=== PATIENT | female | born 1950 | race Caucasian/White ===

== ENCOUNTER 2021-11-11 05:59 | Inpatient (IN) | payer OTHER ==
[2021-11-11] MEDS ORDERED: SODIUM CHLORIDE IV ONE (06:22)
[2021-11-11] MEDS ORDERED: ACETAMINOPHEN 1000 MG/100 ML BAG IVPB ONE ×2 (06:32→16:01)
[2021-11-11] MEDS ORDERED: ACETAMINOPHEN INJECTION 100 ML IVPB ONE ×2 (06:48→16:37)
[2021-11-11] MEDS ORDERED: VANCOMYCIN 1 GM in D5W (PRE-DOCKED) 1,000 MG/250 ML IVPB ONE (07:07)
[2021-11-11] MEDS ORDERED: PIPERACILLIN/TAZOB 4.5 GM 4.5 GM in DEXTROSE 5%-WATER 100 ML IVPB ONE (07:07)
[2021-11-11 07:16] LABS: VENOUS BASE EXCESS 5.5 mmol/L (-2-2); VENOUS PCO2 45.7 mmHg (38-52); VENOUS PH 7.444 (7.310-7.410)
[2021-11-11 07:27] LABS: BASO % 0.7 % (0-2.0); HEMATOCRIT 49.6 % (32.4-45.2); HEMOGLOBIN 16.3 GM/dL (10.7-15.3); LYMPH % 16.6 % (8-40); MCH 29.3 pg (25.7-33.7); MCHC 32.8 g/dl (32.0-36.0); MEAN CELL VOLUME 89.2 fl (80-96); MEAN PLT VOLUME 11.4 fl (7.5-11.1); MONO % 7.7 % (3.8-10.2); PLATELET COUNT 249 10^3/uL (134-434); RBC 5.57 M/mm3 (3.60-5.2); RDW 13.6 % (11.6-15.6); WHITE BLOOD COUNT 12.3 K/mm3 (4.0-10.0)
[2021-11-11] MEDS ORDERED: PIPERACILLIN/TAZOB 4.5 GM 4.5 GM/100 ML BAG IVPB ONE (07:30)
[2021-11-11] MEDS ORDERED: VANCOMYCIN/WATER FOR INJ (PEG) 1,000 MG/200 ML BAG IVPB ONE (07:31)
[2021-11-11 07:36] LABS: INR 1.21 (0.83-1.09)
[2021-11-11 07:39] LABS: ACTIVATED PTT 26.1 SECONDS (25.2-36.5)
[2021-11-11 08:05] LABS: CHLORIDE 114 mmol/L (98-107); SODIUM 153 mmol/L (136-145)
[2021-11-11 08:07] LABS: CALCIUM 9.8 mg/dL (8.5-10.1)
[2021-11-11 08:08] LABS: ALBUMIN 3.7 g/dl (3.4-5.0); ANION GAP 9 MMOL/L (8-16); BLOOD UREA NITROGEN 47.9 mg/dL (7-18); CO2 29 mmol/L (21-32); GLUCOSE,RANDOM 282 mg/dL (74-106)
[2021-11-11] MEDS: ALBUTEROL SO4 2.5/IPRATROPIUM 0.5 INH SOL 3 ML VIAL.NEB. NEB SCH ×2 (08:10→08:34)
[2021-11-11] MEDS ORDERED: ALBUTEROL SO4 2.5/IPRATROPIUM 0.5 INH SOL 3 ML VIAL.NEB. NEB ONE (08:10)
[2021-11-11 08:11] LABS: CREATININE 0.9 mg/dL (0.55-1.3); SGOT/AST 20 U/L (15-37); SGPT/ALT 17 U/L (13-61)
[2021-11-11 08:12] LABS: BILIRUBIN,TOTAL 0.4 mg/dL (0.2-1)
[2021-11-11 08:13] LABS: TOT PROT 7.9 g/dl (6.4-8.2)
[2021-11-11 08:14] LABS: ALK PHOS 66 U/L (45-117)
[2021-11-11 09:09] LABS: EPI CELLS 20 /uL (0-25.1); HYALINE CASTS 16 /uL (0-3.1); PH,URINE >= 9.0 (5.0-8.0); URINE APPEARANCE TURBID; URINE BACTERIA >9,000 /uL (0-1359); URINE BILIRUBIN NEGATIVE (NEGATIVE); URINE COLOR YELLOW; URINE GLUCOSE (UA) NEGATIVE (NEGATIVE); URINE KETONE NEGATIVE (NEGATIVE); URINE LEUK ESTERASE 3+ (NEGATIVE); URINE NITRITE NEGATIVE (NEGATIVE); URINE PROTEIN 3+ (NEGATIVE); URINE RBC 7 /uL (0-23.9); URINE WBC 561 /uL (0-25.8)
[2021-11-11 09:11] LABS: MAGNESIUM 2.3 mg/dL (1.8-2.4)
[2021-11-11 09:14] LABS: PHOSPHOROUS 4.7 mg/dL (2.5-4.9)
[2021-11-11 11:00] LABS: URINE CRYSTALS MANY /hpf
[2021-11-11] MEDS ORDERED: ALBUTEROL SO4 2.5/IPRATROPIUM 0.5 INH SOL 3 ML VIAL.NEB. NEB PRN (12:00)
[2021-11-11] MEDS ORDERED: MUPIROCIN CA 2% TOPICAL CREAM 15 GM TUBE TP SCH (12:00)
[2021-11-11] MEDS ORDERED: SODIUM CHLORIDE 0.9% 1000 ML INFUS.BAG IV ONE (16:01)
[2021-11-11] MEDS: metFORMIN HCL 500 MG TABLET (FP) PO SCH (17:00)
[2021-11-11] MEDS: INSULIN SLIDING SCALE (NOVOLOG) 1 VIAL SQ SCH (17:01)
[2021-11-11] MEDS ORDERED: PIPERACILLIN/TAZOB 3.375 GM 3.375 GM/50 ML BAG IVPB ONE (18:37)
[2021-11-11] MEDS: PIPERACILLIN/TAZOB 3.375 GM 3.375 GM in DEXTROSE 5%-WATER - 50 ML IVPB SCH (19:08)
[2021-11-11] MEDS: SENNOSIDES 8.6MG TABLET (FP) PO SCH (21:58)
[2021-11-11] MEDS: MELATONIN 1 MG TABLET PO SCH (21:58)
[2021-11-11] MEDS: CALCIUM 500MG/VIT-D 200 UNITS COMBO TABLET (FP) PO SCH (21:58)
[2021-11-11] MEDS ORDERED: PATIENT'S OWN MEDICATION (NON-FORMULARY) (Calcium Carb, Citrate/Vit D3 [Calcium + D3 Er Ta PO SCH (22:00)
[2021-11-11] MEDS: LACTULOSE 20 GM/30 ML UDC (FOR ORAL USE ONLY) PO SCH (22:00)
[2021-11-11] MEDS: ATORVASTATIN CA 20 MG TABLET (FP) PO SCH (22:02)
[2021-11-11] MEDS: HEPARIN NA (PORCINE) 5,000 UNITS/ML 1ML VIAL SQ SCH (22:02)
[2021-11-12] MEDS: PIPERACILLIN/TAZOB 3.375 GM 3.375 GM in DEXTROSE 5%-WATER - 50 ML IVPB SCH ×3 (02:00→17:32)
[2021-11-12] MEDS: metFORMIN HCL 500 MG TABLET (FP) PO SCH ×2 (06:13→17:32)
[2021-11-12] MEDS: INSULIN SLIDING SCALE (NOVOLOG) 1 VIAL SQ SCH ×2 (06:13→17:29)
[2021-11-12 07:29] LABS: BASO % 0.6 % (0-2.0); EOS % 0.7 % (0-4.5); HEMATOCRIT 42.5 % (32.4-45.2); HEMOGLOBIN 13.8 GM/dL (10.7-15.3); LYMPH % 19.4 % (8-40); MCH 28.8 pg (25.7-33.7); MCHC 32.4 g/dl (32.0-36.0); MEAN CELL VOLUME 88.8 fl (80-96); MEAN PLT VOLUME 11.7 fl (7.5-11.1); MONO % 6.6 % (3.8-10.2); NEUT % 72.7 % (42.8-82.8); PLATELET COUNT 178 10^3/uL (134-434); RBC 4.78 M/mm3 (3.60-5.2); RDW 13.7 % (11.6-15.6); WHITE BLOOD COUNT 11.3 K/mm3 (4.0-10.0)
[2021-11-12 07:50] LABS: ALBUMIN 3.1 g/dl (3.4-5.0); BLOOD UREA NITROGEN 36.2 mg/dL (7-18); CALCIUM 9.1 mg/dL (8.5-10.1)
[2021-11-12 07:54] LABS: CREATININE 0.6 mg/dL (0.55-1.3)
[2021-11-12 07:55] LABS: BILIRUBIN,TOTAL 0.7 mg/dL (0.2-1); TOT PROT 6.7 g/dl (6.4-8.2)
[2021-11-12] MEDS ORDERED: CRANBERRY FRUIT 450 MG PO SCH (10:00)
[2021-11-12] MEDS ORDERED: PATIENT'S OWN MEDICATION (NON-FORMULARY) (Vit A/Vit C/Vit E/Zinc/Copper [Preservision Ared PO SCH (10:00)
[2021-11-12] MEDS ORDERED: VANCOMYCIN 1 GM in D5W (PRE-DOCKED) 1,000 MG/250 ML IVPB ONE (10:33)
[2021-11-12] MEDS: CHOLECALCIFEROL (VIT D3) 1,000 UNIT (25 MCG) TABLET PO SCH (10:34)
[2021-11-12] MEDS: CALCIUM 500MG/VIT-D 200 UNITS COMBO TABLET (FP) PO SCH ×2 (10:34→21:25)
[2021-11-12] MEDS: SERTRALINE HCL 50 MG TABLET (FP) PO SCH (10:34)
[2021-11-12] MEDS: ASPIRIN 81 MG CHEWABLE TABLETS PO SCH (10:34)
[2021-11-12] MEDS: NIFEdipine E.R. 30 MG TABLET PO SCH (10:34)
[2021-11-12] MEDS: POLYETHYLENE GLYCOL (HEALTHYLAX) 3350 17 GM PACKET PO SCH (10:35)
[2021-11-12] MEDS: HEPARIN NA (PORCINE) 5,000 UNITS/ML 1ML VIAL SQ SCH ×2 (10:35→21:24)
[2021-11-12] MEDS: LACTULOSE 20 GM/30 ML UDC (FOR ORAL USE ONLY) PO SCH ×2 (10:37→21:39)
[2021-11-12] MEDS ORDERED: VANCOMYCIN/WATER FOR INJ (PEG) 1,000 MG/200 ML BAG IVPB ONE (11:00)
[2021-11-12] MEDS ORDERED: LORazepam 2 MG/ML SDV VIAL IVPUSH PRN (14:34)
[2021-11-12] MEDS: DEXTROSE 5%-0.45% SALINE 1,000 ML IV SCH (17:32)
[2021-11-12] MEDS: MELATONIN 1 MG TABLET PO SCH (21:24)
[2021-11-12] MEDS: ATORVASTATIN CA 20 MG TABLET (FP) PO SCH (21:24)
[2021-11-12] MEDS: SENNOSIDES 8.6MG TABLET (FP) PO SCH (21:25)
[2021-11-12] MEDS ORDERED: VANCOMYCIN 750 MG in DEXTROSE 5%-WATER - 150 ML IVPB SCH (22:00)
[2021-11-13] MEDS: PIPERACILLIN/TAZOB 3.375 GM 3.375 GM in DEXTROSE 5%-WATER - 50 ML IVPB SCH ×3 (01:02→17:20)
[2021-11-13] MEDS: INSULIN SLIDING SCALE (NOVOLOG) 1 VIAL SQ SCH ×2 (06:26→17:21)
[2021-11-13] MEDS: metFORMIN HCL 500 MG TABLET (FP) PO SCH ×2 (06:26→17:20)
[2021-11-13 07:22] LABS: CALCIUM 8.4 mg/dL (8.5-10.1)
[2021-11-13 07:23] LABS: ALBUMIN 2.9 g/dl (3.4-5.0); BLOOD UREA NITROGEN 26.5 mg/dL (7-18)
[2021-11-13 07:26] LABS: CREATININE 0.6 mg/dL (0.55-1.3)
[2021-11-13 07:28] LABS: BILIRUBIN,TOTAL 0.9 mg/dL (0.2-1)
[2021-11-13] MEDS: HEPARIN NA (PORCINE) 5,000 UNITS/ML 1ML VIAL SQ SCH ×2 (09:26→21:29)
[2021-11-13] MEDS: ASPIRIN 81 MG CHEWABLE TABLETS PO SCH (09:26)
[2021-11-13] MEDS: NIFEdipine E.R. 30 MG TABLET PO SCH (09:26)
[2021-11-13] MEDS: CHOLECALCIFEROL (VIT D3) 1,000 UNIT (25 MCG) TABLET PO SCH (09:26)
[2021-11-13] MEDS: SERTRALINE HCL 50 MG TABLET (FP) PO SCH (09:26)
[2021-11-13] MEDS: CALCIUM 500MG/VIT-D 200 UNITS COMBO TABLET (FP) PO SCH ×2 (09:26→21:29)
[2021-11-13] MEDS: POLYETHYLENE GLYCOL (HEALTHYLAX) 3350 17 GM PACKET PO SCH (09:27)
[2021-11-13] MEDS: LACTULOSE 20 GM/30 ML UDC (FOR ORAL USE ONLY) PO SCH ×2 (09:27→21:29)
[2021-11-13] MEDS: DEXTROSE 5%-0.45% SALINE 1,000 ML IV SCH (14:00)
[2021-11-13 14:46] VITALS: BMI 19.0
[2021-11-13] MEDS ORDERED: PIPERACILLIN/TAZOBACTAM 3.375 GM VIAL IVPB ONE (16:48)
[2021-11-13] MEDS: SENNOSIDES 8.6MG TABLET (FP) PO SCH (21:29)
[2021-11-13] MEDS: ATORVASTATIN CA 20 MG TABLET (FP) PO SCH (21:29)
[2021-11-13] MEDS: MELATONIN 1 MG TABLET PO SCH (21:29)
[2021-11-14] MEDS: PIPERACILLIN/TAZOB 3.375 GM 3.375 GM in DEXTROSE 5%-WATER - 50 ML IVPB SCH ×3 (02:54→17:24)
[2021-11-14] MEDS: metFORMIN HCL 500 MG TABLET (FP) PO SCH ×2 (06:43→17:24)
[2021-11-14] MEDS: INSULIN SLIDING SCALE (NOVOLOG) 1 VIAL SQ SCH ×2 (06:43→17:54)
[2021-11-14] MEDS: ASPIRIN 81 MG CHEWABLE TABLETS PO SCH (11:04)
[2021-11-14] MEDS: SERTRALINE HCL 50 MG TABLET (FP) PO SCH (11:04)
[2021-11-14] MEDS: POLYETHYLENE GLYCOL (HEALTHYLAX) 3350 17 GM PACKET PO SCH (11:04)
[2021-11-14] MEDS: CALCIUM 500MG/VIT-D 200 UNITS COMBO TABLET (FP) PO SCH ×2 (11:05→22:10)
[2021-11-14] MEDS: LACTULOSE 20 GM/30 ML UDC (FOR ORAL USE ONLY) PO SCH ×2 (11:05→22:02)
[2021-11-14] MEDS: HEPARIN NA (PORCINE) 5,000 UNITS/ML 1ML VIAL SQ SCH ×2 (11:05→22:03)
[2021-11-14] MEDS: CHOLECALCIFEROL (VIT D3) 1,000 UNIT (25 MCG) TABLET PO SCH (11:05)
[2021-11-14] MEDS: NIFEdipine E.R. 30 MG TABLET PO SCH (11:05)
[2021-11-14] MEDS: DEXTROSE 5%-0.45% SALINE 1,000 ML IV SCH (11:07)
[2021-11-14] MEDS: LACTOBACILLUS ACIDOPHILUS 1 TABLET PO SCH (17:24)
[2021-11-14] MEDS: ATORVASTATIN CA 20 MG TABLET (FP) PO SCH (22:04)
[2021-11-14] MEDS: MELATONIN 1 MG TABLET PO SCH (22:10)
[2021-11-14] MEDS: SENNOSIDES 8.6MG TABLET (FP) PO SCH (22:16)
[2021-11-15] MEDS: CEFTRIAXONE 1 GM in DEXTROSE 5%-WATER - 50 ML IVPB SCH ×2 (01:46→11:11)
[2021-11-15] MEDS: metFORMIN HCL 500 MG TABLET (FP) PO SCH ×3 (06:24→17:40)
[2021-11-15] MEDS: INSULIN SLIDING SCALE (NOVOLOG) 1 VIAL SQ SCH ×2 (06:24→17:38)
[2021-11-15 08:13] LABS: BASO % 0.6 % (0-2.0); EOS % 3.9 % (0-4.5); HEMATOCRIT 36.1 % (32.4-45.2); HEMOGLOBIN 12.1 GM/dL (10.7-15.3); LYMPH % 30.4 % (8-40); MCH 29.3 pg (25.7-33.7); MCHC 33.4 g/dl (32.0-36.0); MEAN CELL VOLUME 87.6 fl (80-96); MEAN PLT VOLUME 12.5 fl (7.5-11.1); MONO % 5.6 % (3.8-10.2); NEUT % 59.5 % (42.8-82.8); PLATELET COUNT 136 10^3/uL (134-434); RBC 4.12 M/mm3 (3.60-5.2); RDW 12.9 % (11.6-15.6); WHITE BLOOD COUNT 8.3 K/mm3 (4.0-10.0)
[2021-11-15 08:31] LABS: ALBUMIN 2.7 g/dl (3.4-5.0); CREATININE 0.4 mg/dL (0.55-1.3)
[2021-11-15 08:32] LABS: TOT PROT 5.5 g/dl (6.4-8.2)
[2021-11-15 08:33] LABS: BILIRUBIN,TOTAL 0.4 mg/dL (0.2-1); CALCIUM 8.5 mg/dL (8.5-10.1)
[2021-11-15] MEDS: HEPARIN NA (PORCINE) 5,000 UNITS/ML 1ML VIAL SQ SCH ×2 (11:10→21:39)
[2021-11-15] MEDS: CALCIUM 500MG/VIT-D 200 UNITS COMBO TABLET (FP) PO SCH ×2 (11:10→21:39)
[2021-11-15] MEDS: POLYETHYLENE GLYCOL (HEALTHYLAX) 3350 17 GM PACKET PO SCH (11:10)
[2021-11-15] MEDS: ASPIRIN 81 MG CHEWABLE TABLETS PO SCH (11:11)
[2021-11-15] MEDS: LACTULOSE 20 GM/30 ML UDC (FOR ORAL USE ONLY) PO SCH ×2 (11:11→21:39)
[2021-11-15] MEDS: CHOLECALCIFEROL (VIT D3) 1,000 UNIT (25 MCG) TABLET PO SCH (11:11)
[2021-11-15] MEDS: NIFEdipine E.R. 30 MG TABLET PO SCH (11:11)
[2021-11-15] MEDS: SERTRALINE HCL 50 MG TABLET (FP) PO SCH (11:11)
[2021-11-15] MEDS: LACTOBACILLUS ACIDOPHILUS 1 TABLET PO SCH (11:11)
[2021-11-15] MEDS: DEXTROSE 5%-0.45% SALINE 1,000 ML IV SCH (11:12)
[2021-11-15] MEDS: ATORVASTATIN CA 20 MG TABLET (FP) PO SCH (21:39)
[2021-11-15] MEDS: MELATONIN 1 MG TABLET PO SCH (21:39)
[2021-11-15] MEDS: SENNOSIDES 8.6MG TABLET (FP) PO SCH (21:39)
[2021-11-16] MEDS: INSULIN SLIDING SCALE (NOVOLOG) 1 VIAL SQ SCH ×2 (06:54→17:45)
[2021-11-16] MEDS: metFORMIN HCL 500 MG TABLET (FP) PO SCH ×2 (06:54→17:41)
[2021-11-16] MEDS: CEFTRIAXONE 1 GM in DEXTROSE 5%-WATER - 50 ML IVPB SCH (10:48)
[2021-11-16] MEDS: CALCIUM 500MG/VIT-D 200 UNITS COMBO TABLET (FP) PO SCH ×2 (10:49→22:03)
[2021-11-16] MEDS: CHOLECALCIFEROL (VIT D3) 1,000 UNIT (25 MCG) TABLET PO SCH (10:49)
[2021-11-16] MEDS: POLYETHYLENE GLYCOL (HEALTHYLAX) 3350 17 GM PACKET PO SCH (10:49)
[2021-11-16] MEDS: LACTOBACILLUS ACIDOPHILUS 1 TABLET PO SCH (10:49)
[2021-11-16] MEDS: SERTRALINE HCL 50 MG TABLET (FP) PO SCH (10:49)
[2021-11-16] MEDS: HEPARIN NA (PORCINE) 5,000 UNITS/ML 1ML VIAL SQ SCH ×2 (10:50→22:05)
[2021-11-16] MEDS: ASPIRIN 81 MG CHEWABLE TABLETS PO SCH (10:50)
[2021-11-16] MEDS: LACTULOSE 20 GM/30 ML UDC (FOR ORAL USE ONLY) PO SCH ×2 (10:50→22:04)
[2021-11-16] MEDS: NIFEdipine E.R. 30 MG TABLET PO SCH (10:50)
[2021-11-16] MEDS: MELATONIN 1 MG TABLET PO SCH (22:03)
[2021-11-16] MEDS: ATORVASTATIN CA 20 MG TABLET (FP) PO SCH (22:03)
[2021-11-16] MEDS: SENNOSIDES 8.6MG TABLET (FP) PO SCH (22:03)
[2021-11-17] MEDS: INSULIN SLIDING SCALE (NOVOLOG) 1 VIAL SQ SCH ×2 (06:45→17:14)
[2021-11-17] MEDS: metFORMIN HCL 500 MG TABLET (FP) PO SCH ×2 (06:46→17:10)
[2021-11-17] MEDS ORDERED: CEFTRIAXONE 1 GM in DEXTROSE 5%-WATER - 50 ML IVPB SCH (10:00)
[2021-11-17] MEDS: NIFEdipine E.R. 30 MG TABLET PO SCH (10:05)
[2021-11-17] MEDS: ASPIRIN 81 MG CHEWABLE TABLETS PO SCH (10:05)
[2021-11-17] MEDS: CALCIUM 500MG/VIT-D 200 UNITS COMBO TABLET (FP) PO SCH ×2 (10:05→23:42)
[2021-11-17] MEDS: SERTRALINE HCL 50 MG TABLET (FP) PO SCH (10:05)
[2021-11-17] MEDS: POLYETHYLENE GLYCOL (HEALTHYLAX) 3350 17 GM PACKET PO SCH (10:06)
[2021-11-17] MEDS: LACTULOSE 20 GM/30 ML UDC (FOR ORAL USE ONLY) PO SCH ×2 (10:06→23:43)
[2021-11-17] MEDS: LACTOBACILLUS ACIDOPHILUS 1 TABLET PO SCH (10:06)
[2021-11-17] MEDS: HEPARIN NA (PORCINE) 5,000 UNITS/ML 1ML VIAL SQ SCH ×2 (10:06→23:43)
[2021-11-17] MEDS: CHOLECALCIFEROL (VIT D3) 1,000 UNIT (25 MCG) TABLET PO SCH (10:07)
[2021-11-17] MEDS: MELATONIN 1 MG TABLET PO SCH (23:42)
[2021-11-17] MEDS: ATORVASTATIN CA 20 MG TABLET (FP) PO SCH (23:42)
[2021-11-17] MEDS: SENNOSIDES 8.6MG TABLET (FP) PO SCH (23:42)
[2021-11-18] MEDS: metFORMIN HCL 500 MG TABLET (FP) PO SCH ×2 (06:08→16:32)
[2021-11-18] MEDS: INSULIN SLIDING SCALE (NOVOLOG) 1 VIAL SQ SCH ×2 (06:09→16:33)
[2021-11-18 10:04] VITALS: RESP 18
[2021-11-18] MEDS: NIFEdipine E.R. 30 MG TABLET PO SCH (10:04)
[2021-11-18] MEDS: POLYETHYLENE GLYCOL (HEALTHYLAX) 3350 17 GM PACKET PO SCH (10:04)
[2021-11-18] MEDS: CALCIUM 500MG/VIT-D 200 UNITS COMBO TABLET (FP) PO SCH (10:04)
[2021-11-18] MEDS: CHOLECALCIFEROL (VIT D3) 1,000 UNIT (25 MCG) TABLET PO SCH (10:04)
[2021-11-18] MEDS: LACTOBACILLUS ACIDOPHILUS 1 TABLET PO SCH (10:04)
[2021-11-18] MEDS: LACTULOSE 20 GM/30 ML UDC (FOR ORAL USE ONLY) PO SCH (10:04)
[2021-11-18] MEDS: ASPIRIN 81 MG CHEWABLE TABLETS PO SCH (10:05)
[2021-11-18] MEDS: HEPARIN NA (PORCINE) 5,000 UNITS/ML 1ML VIAL SQ SCH (10:05)
[2021-11-18] MEDS: SERTRALINE HCL 50 MG TABLET (FP) PO SCH (10:05)
[2021-11-18] MEDS: CEPHALEXIN MONOHYDRATE 500 MG CAPSULE (UD) PO SCH ×3 (10:05→18:00)
[2021-11-18 13:57] VITALS: BP 125/73; PULSE 97; TEMP 97.5
== END 2021-11-18 18:29 | DRG 871 ==
LOC: JER 05:59 → JERBED 08:09 → J4W 20:46 → J6S 11-16 18:37
PROVIDERS: ADMIT Internal Medicine; ATTEND Internal Medicine
DX: A41.89 Other specified sepsis (principal); E43 Unspecified severe protein-calorie malnutrition; N39.0 Urinary tract infection, site not specified; Z68.1 Body mass index [BMI] 19.9 or less, adult; I10 Essential (primary) hypertension; E78.5 Hyperlipidemia, unspecified; F03.90 Unspecified dementia, unspecified severity, without behavioral disturbance, psychotic disturbance, mood disturbance, and anxiety; G20 Parkinson's disease; K59.00 Constipation, unspecified; B96.4 Proteus (mirabilis) (morganii) as the cause of diseases classified elsewhere; Z74.01 Bed confinement status; Z85.3 Personal history of malignant neoplasm of breast
CPT/HCPCS: 0241U-QW; 36415; 70450-TC; 71045-TC-FY; 80053; 81003; 82550; 82553; 82803; 82962; 83036; 83605; 83735; 84100; 84484; 85025; 85610; 85730; 86850; 86900; 86901; 87040; 87077; 87086; 87186; 93005; 93010; 93306-TC; 94640; 99285-25; C9803-CS; G0480; J1644; U0003; U0005

== ENCOUNTER 2022-04-21 13:11 | Inpatient (IN) | payer OTHER ==
[2022-04-21] MEDS ORDERED: ADENOSINE 6 MG/2 ML VIAL IVPUSH ONE ×2 (13:32→13:42)
[2022-04-21 13:51] VITALS: BMI 23.3
[2022-04-21] MEDS ORDERED: ACETAMINOPHEN INJECTION 100 ML IVPB ONE (13:57)
[2022-04-21] MEDS ORDERED: VANCOMYCIN/WATER FOR INJ (PEG) 1,000 MG/200 ML BAG IVPB ONE ×2 (14:06→15:27)
[2022-04-21] MEDS ORDERED: PIPERACILLIN/TAZOBACTAM 4.5 GM VIAL IVPB ONE (14:06)
[2022-04-21 14:28] LABS: EPI CELLS >36 /uL (0-25.1); HYALINE CASTS 3 /uL (0-3.1); PH,URINE 5.5 (5.0-8.0); URINE APPEARANCE CLOUDY; URINE BACTERIA 9 /uL (0-1359); URINE BILIRUBIN NEGATIVE (NEGATIVE); URINE COLOR YELLOW; URINE GLUCOSE (UA) NEGATIVE (NEGATIVE); URINE KETONE TRACE (NEGATIVE); URINE LEUK ESTERASE NEGATIVE (NEGATIVE); URINE NITRITE NEGATIVE (NEGATIVE); URINE PROTEIN 4+ (NEGATIVE); URINE RBC 22 /uL (0-23.9); URINE WBC 20 /uL (0-25.8)
[2022-04-21 14:31] LABS: INR 1.23 (0.83-1.09); PROTHROMBIN TIME (PATIENT) 14.2 SEC (9.7-13.0)
[2022-04-21 14:34] LABS: ACTIVATED PTT 27.6 SECONDS (25.2-36.5)
[2022-04-21 14:37] LABS: URINE CRYSTALS NEGATIVE /hpf
[2022-04-21 14:42] LABS: VENOUS BASE EXCESS 0.5 mmol/L (-2-2); VENOUS O2 SATURATION 95.3 % (70-80); VENOUS PCO2 34.8 mmHg (38-52); VENOUS PH 7.453 (7.310-7.410)
[2022-04-21] MEDS ORDERED: LACTATED RINGERS SOLUTION 1,000 ML/1,000 ML INFUS.BAG IV ONE (14:48)
[2022-04-21 14:51] LABS: CALCIUM 10.1 mg/dL (8.5-10.1)
[2022-04-21 14:52] LABS: ALBUMIN 3.5 g/dl (3.4-5.0); BLOOD UREA NITROGEN 50.3 mg/dL (7-18)
[2022-04-21] MEDS ORDERED: ACETAMINOPHEN 1000 MG/100 ML BAG IVPB ONE (14:53)
[2022-04-21] MEDS ORDERED: SODIUM CHLORIDE 0.9% 500 ML INFUS.BAG IV ONE (14:53)
[2022-04-21 14:55] LABS: CREATININE 0.9 mg/dL (0.55-1.3)
[2022-04-21 14:56] LABS: TOT PROT 8.2 g/dl (6.4-8.2)
[2022-04-21 14:57] LABS: BILIRUBIN,TOTAL 0.4 mg/dL (0.2-1)
[2022-04-21 15:16] LABS: LACTIC ACID 2.1 mmol/L (0.4-2.0)
[2022-04-21] MEDS ORDERED: PIPERACILLIN/TAZOB 4.5 GM 4.5 GM/100 ML BAG IVPB ONE (15:27)
[2022-04-21 15:30] LABS: BASO % 0.6 % (0-2.0); HEMATOCRIT 51.4 % (32.4-45.2); HEMOGLOBIN 16.6 GM/dL (10.7-15.3); MCH 28.8 pg (25.7-33.7); MCHC 32.3 g/dl (32.0-36.0); MEAN CELL VOLUME 89.3 fl (80-96); MEAN PLT VOLUME 12.4 fl (7.5-11.1); MONO % 9.1 % (3.8-10.2); NEUT % 64.3 % (42.8-82.8); PLATELET COUNT 372 10^3/uL (134-434); RBC 5.76 M/mm3 (3.60-5.2); RDW 14.7 % (11.6-15.6); WHITE BLOOD COUNT 15.1 K/mm3 (4.0-10.0)
[2022-04-21 19:01] LABS: LACTIC ACID 2.2 mmol/L (0.4-2.0)
[2022-04-21 23:49] LABS: MAGNESIUM 2.2 mg/dL (1.8-2.4)
[2022-04-21 23:54] LABS: PHOSPHOROUS 3.8 mg/dL (2.5-4.9)
[2022-04-22] MEDS ORDERED: PIPERACILLIN/TAZOB 3.375 GM 3.375 GM/50 ML BAG IVPB ONE ×3 (04:30→14:21)
[2022-04-22] MEDS ORDERED: VANCOMYCIN/WATER FOR INJ (PEG) 1,000 MG/200 ML BAG IVPB ONE (04:30)
[2022-04-22] MEDS: PIPERACILLIN/TAZOB 3.375 GM 3.375 GM in DEXTROSE 5%-WATER - 50 ML IVPB SCH ×4 (05:45→23:09)
[2022-04-22] MEDS ORDERED: VANCOMYCIN 1 GM/200 ML PREMIX BAG (RESTRICTED TO ID ONLY) IVPB SCH (06:00)
[2022-04-22] MEDS ORDERED: ACETAMINOPHEN 1000 MG/100 ML BAG IVPB PRN (06:05)
[2022-04-22 06:39] LABS: BASO % 0.6 % (0-2.0); HEMATOCRIT 44.9 % (32.4-45.2); HEMOGLOBIN 14.3 GM/dL (10.7-15.3); MCH 28.7 pg (25.7-33.7); MCHC 31.8 g/dl (32.0-36.0); MEAN CELL VOLUME 90.3 fl (80-96); MEAN PLT VOLUME 11.6 fl (7.5-11.1); MONO % 7.7 % (3.8-10.2); NEUT % 71.7 % (42.8-82.8); PLATELET COUNT 262 10^3/uL (134-434); RBC 4.97 M/mm3 (3.60-5.2); RDW 14.7 % (11.6-15.6); WHITE BLOOD COUNT 11.8 K/mm3 (4.0-10.0)
[2022-04-22 07:03] LABS: BLOOD UREA NITROGEN 47.6 mg/dL (7-18); CALCIUM 8.8 mg/dL (8.5-10.1)
[2022-04-22 07:06] LABS: CREATININE 0.7 mg/dL (0.55-1.3)
[2022-04-22] MEDS: SODIUM CHLORIDE 1,000 ML IV SCH (07:41)
[2022-04-22] MEDS ORDERED: KCL 10 MEQ IVPB 10 MEQ/100 ML INFUS.BAG IVPB ONE ×2 (09:24→10:56)
[2022-04-22] MEDS ORDERED: MINERAL OIL ENEMA 133 ML ENEMA RC ONE (09:30)
[2022-04-22] MEDS: KCL 10 MEQ IVPB 10 MEQ/100 ML INFUS.BAG IVPB SCH ×2 (09:39→11:00)
[2022-04-22] MEDS ORDERED: METOPROLOL TARTRATE 5 MG/5 ML VIAL IVPUSH PRN (14:38)
[2022-04-22] MEDS ORDERED: METOPROLOL TARTRATE 5 MG/5 ML VIAL ONE (14:42)
[2022-04-22] MEDS: POLYETHYLENE GLYCOL (HEALTHYLAX) 3350 17 GM PACKET PO SCH ×2 (17:28→23:09)
[2022-04-22] MEDS: METOPROLOL TARTRATE 25 MG TABLET (FP) PO SCH (23:09)
[2022-04-23] MEDS ORDERED: PIPERACILLIN/TAZOB 3.375 GM 3.375 GM in DEXTROSE 5%-WATER - 50 ML IVPB SCH (03:00)
[2022-04-23] MEDS ORDERED: VANCOMYCIN 1 GM/200 ML PREMIX BAG (RESTRICTED TO ID ONLY) IVPB SCH (06:00)
[2022-04-23] MEDS: METOPROLOL TARTRATE 25 MG TABLET (FP) PO SCH ×2 (09:32→22:12)
[2022-04-23] MEDS: POLYETHYLENE GLYCOL (HEALTHYLAX) 3350 17 GM PACKET PO SCH ×2 (09:32→15:27)
[2022-04-23] MEDS: LACTULOSE 20 GM/30 ML UDC (FOR ORAL USE ONLY) PO SCH (22:13)
[2022-04-24] MEDS: LACTULOSE 20 GM/30 ML UDC (FOR ORAL USE ONLY) PO SCH ×3 (05:44→22:19)
[2022-04-24] MEDS: SODIUM CHLORIDE 1,000 ML IV SCH ×2 (05:44→13:00)
[2022-04-24 09:55] LABS: HEMATOCRIT 42.4 % (32.4-45.2); HEMOGLOBIN 13.8 GM/dL (10.7-15.3); MCH 29.4 pg (25.7-33.7); MCHC 32.6 g/dl (32.0-36.0); MEAN PLT VOLUME 12.4 fl (7.5-11.1); PLATELET COUNT 84 10^3/uL (134-434); RBC 4.71 M/mm3 (3.60-5.2); RDW 14.3 % (11.6-15.6); WHITE BLOOD COUNT 8.9 K/mm3 (4.0-10.0)
[2022-04-24 10:33] LABS: BLOOD UREA NITROGEN 24.7 mg/dL (7-18); CALCIUM 8.9 mg/dL (8.5-10.1)
[2022-04-24 10:37] LABS: CREATININE 0.4 mg/dL (0.55-1.3)
[2022-04-24] MEDS: METOPROLOL TARTRATE 25 MG TABLET (FP) PO SCH ×2 (12:10→22:19)
[2022-04-24] MEDS ORDERED: POTASSIUM CHLORIDE ORAL LIQUID 20 MEQ/15 ML PO ONE (18:55)
[2022-04-24] MEDS: SODIUM CHLORIDE 1,000 ML with POTASSIUM CHLORIDE 10 MEQ IV SCH (22:18)
[2022-04-25] MEDS: LACTULOSE 20 GM/30 ML UDC (FOR ORAL USE ONLY) PO SCH ×3 (06:30→21:58)
[2022-04-25] MEDS: METOPROLOL TARTRATE 25 MG TABLET (FP) PO SCH ×2 (11:08→21:58)
[2022-04-25] MEDS: SODIUM CHLORIDE 1,000 ML with POTASSIUM CHLORIDE 10 MEQ IV SCH (16:12)
[2022-04-26] MEDS: LACTULOSE 20 GM/30 ML UDC (FOR ORAL USE ONLY) PO SCH ×3 (07:00→22:00)
[2022-04-26 09:15] LABS: BASO % 0.4 % (0-2.0); EOS % 2.3 % (0-4.5); HEMATOCRIT 38.9 % (32.4-45.2); HEMOGLOBIN 12.7 GM/dL (10.7-15.3); LYMPH % 19.3 % (8-40); MCH 28.8 pg (25.7-33.7); MCHC 32.7 g/dl (32.0-36.0); MEAN PLT VOLUME 11.4 fl (7.5-11.1); MONO % 6.7 % (3.8-10.2); NEUT % 71.3 % (42.8-82.8); PLATELET COUNT 183 10^3/uL (134-434); RBC 4.42 M/mm3 (3.60-5.2); RDW 13.6 % (11.6-15.6); WHITE BLOOD COUNT 10.8 K/mm3 (4.0-10.0)
[2022-04-26 09:31] LABS: CHLORIDE 103 mmol/L (98-107); SODIUM 140 mmol/L (136-145)
[2022-04-26 09:33] LABS: CALCIUM 8.3 mg/dL (8.5-10.1)
[2022-04-26 09:35] LABS: BLOOD UREA NITROGEN 5.9 mg/dL (7-18); CO2 30 mmol/L (21-32); GLUCOSE,RANDOM 141 mg/dL (74-106)
[2022-04-26 09:37] LABS: CREATININE 0.4 mg/dL (0.55-1.3); SGOT/AST 25 U/L (15-37); SGPT/ALT 19 U/L (13-61)
[2022-04-26 09:38] LABS: BILIRUBIN,TOTAL 0.5 mg/dL (0.2-1)
[2022-04-26 09:41] LABS: ALK PHOS 51 U/L (45-117)
[2022-04-26 09:42] LABS: ALBUMIN 2.7 g/dl (3.4-5.0); ANION GAP 7 MMOL/L (8-16); TOT PROT 5.7 g/dl (6.4-8.2)
[2022-04-26] MEDS: POTASSIUM CHLORIDE ORAL LIQUID 20 MEQ/15 ML PO SCH ×2 (12:33→22:31)
[2022-04-26] MEDS: METOPROLOL TARTRATE 25 MG TABLET (FP) PO SCH ×2 (12:33→22:31)
[2022-04-26] MEDS: SODIUM CHLORIDE 1,000 ML with POTASSIUM CHLORIDE 10 MEQ IV SCH (13:19)
[2022-04-26] MEDS ORDERED: SERTRALINE HCL 50 MG TABLET (FP) PO ONE (14:00)
[2022-04-26] MEDS: ACETAMINOPHEN 325 MG TABLET (FP) PO PRN (14:01)
[2022-04-26] MEDS: SENNOSIDES 8.6MG TABLET (FP) PO SCH (22:31)
[2022-04-26] MEDS: ATORVASTATIN CA 20 MG TABLET (FP) PO SCH (22:31)
[2022-04-26] MEDS: MELATONIN 1 MG TABLET PO SCH (22:31)
[2022-04-26] MEDS: CALCIUM 250MG/VIT-D 125 UNITS 1 COMBO TABLET PO SCH (22:32)
[2022-04-27] MEDS: LACTULOSE 20 GM/30 ML UDC (FOR ORAL USE ONLY) PO SCH ×3 (05:33→22:50)
[2022-04-27] MEDS: SODIUM CHLORIDE 1,000 ML with POTASSIUM CHLORIDE 10 MEQ IV SCH (06:23)
[2022-04-27] MEDS: LACTOBACILLUS ACIDOPHILUS 1 TABLET PO SCH (09:29)
[2022-04-27] MEDS: ASCORBIC ACID 500 MG TABLET (FP) PO SCH (09:29)
[2022-04-27] MEDS: POTASSIUM CHLORIDE ORAL LIQUID 20 MEQ/15 ML PO SCH ×2 (09:29→22:50)
[2022-04-27] MEDS: MULTIVITAMINS (DAILY MVI) TABLET (FP) PO SCH (09:29)
[2022-04-27] MEDS: SERTRALINE HCL 50 MG TABLET (FP) PO SCH (09:30)
[2022-04-27] MEDS: METOPROLOL TARTRATE 25 MG TABLET (FP) PO SCH ×2 (09:30→22:51)
[2022-04-27] MEDS: CHOLECALCIFEROL (VIT D3) 1,000 UNIT (25 MCG) TABLET PO SCH (09:30)
[2022-04-27] MEDS: CALCIUM 250MG/VIT-D 125 UNITS 1 COMBO TABLET PO SCH ×2 (09:31→22:51)
[2022-04-27] MEDS: NIFEdipine E.R. 30 MG TABLET PO SCH (09:31)
[2022-04-27 09:55] LABS: BASO % 0.5 % (0-2.0); EOS % 2.7 % (0-4.5); HEMATOCRIT 39.5 % (32.4-45.2); HEMOGLOBIN 12.7 GM/dL (10.7-15.3); LYMPH % 28.2 % (8-40); MCH 28.7 pg (25.7-33.7); MEAN CELL VOLUME 89.4 fl (80-96); MEAN PLT VOLUME 12.1 fl (7.5-11.1); MONO % 8.4 % (3.8-10.2); NEUT % 60.2 % (42.8-82.8); PLATELET COUNT 188 10^3/uL (134-434); RBC 4.42 M/mm3 (3.60-5.2); WHITE BLOOD COUNT 7.5 K/mm3 (4.0-10.0)
[2022-04-27] MEDS: POLYETHYLENE GLYCOL 3350 255 GM BTL PO SCH (10:00)
[2022-04-27] MEDS ORDERED: ASCORBIC ACID 500 MG TABLET (FP) PO SCH (10:00)
[2022-04-27 10:27] LABS: ALBUMIN 2.7 g/dl (3.4-5.0)
[2022-04-27 10:28] LABS: CALCIUM 8.8 mg/dL (8.5-10.1)
[2022-04-27 10:29] LABS: MAGNESIUM 1.9 mg/dL (1.8-2.4)
[2022-04-27 10:32] LABS: BILIRUBIN,TOTAL 0.5 mg/dL (0.2-1); CREATININE 0.4 mg/dL (0.55-1.3); TOT PROT 5.7 g/dl (6.4-8.2)
[2022-04-27] MEDS: BACITRACIN ZINC 15 GM TUBE TOPICAL OINTMENT TP SCH (13:24)
[2022-04-27] MEDS: AMINO ACIDS/PROTEIN HYDROLYS 30 ML LIQUID.PKT PO SCH (16:54)
[2022-04-27] MEDS: MELATONIN 1 MG TABLET PO SCH (22:50)
[2022-04-27] MEDS: SENNOSIDES 8.6MG TABLET (FP) PO SCH (22:50)
[2022-04-27] MEDS: ATORVASTATIN CA 20 MG TABLET (FP) PO SCH (22:50)
[2022-04-28] MEDS: LACTULOSE 20 GM/30 ML UDC (FOR ORAL USE ONLY) PO SCH ×2 (06:36→13:14)
[2022-04-28] MEDS: AMINO ACIDS/PROTEIN HYDROLYS 30 ML LIQUID.PKT PO SCH ×2 (08:24→16:59)
[2022-04-28] MEDS: SODIUM CHLORIDE 1,000 ML with POTASSIUM CHLORIDE 10 MEQ IV SCH ×2 (10:00→22:41)
[2022-04-28] MEDS: ASCORBIC ACID 500 MG TABLET (FP) PO SCH (10:16)
[2022-04-28] MEDS: SERTRALINE HCL 50 MG TABLET (FP) PO SCH (10:16)
[2022-04-28] MEDS: CHOLECALCIFEROL (VIT D3) 1,000 UNIT (25 MCG) TABLET PO SCH (10:16)
[2022-04-28] MEDS: NIFEdipine E.R. 30 MG TABLET PO SCH ×2 (10:16→11:24)
[2022-04-28] MEDS: CALCIUM 250MG/VIT-D 125 UNITS 1 COMBO TABLET PO SCH ×2 (10:16→22:40)
[2022-04-28] MEDS: METOPROLOL TARTRATE 25 MG TABLET (FP) PO SCH ×3 (10:16→22:40)
[2022-04-28] MEDS: MULTIVITAMINS (DAILY MVI) TABLET (FP) PO SCH (10:16)
[2022-04-28] MEDS: LACTOBACILLUS ACIDOPHILUS 1 TABLET PO SCH (10:16)
[2022-04-28] MEDS: POTASSIUM CHLORIDE ORAL LIQUID 20 MEQ/15 ML PO SCH ×2 (10:17→22:39)
[2022-04-28] MEDS ORDERED: POLYETHYLENE GLYCOL (HEALTHYLAX) 3350 17 GM PACKET PO SCH (10:27)
[2022-04-28] MEDS: POLYETHYLENE GLYCOL 3350 255 GM BTL PO SCH (10:31)
[2022-04-28] MEDS: ACETAMINOPHEN 325 MG TABLET (FP) PO PRN (11:21)
[2022-04-28] MEDS: BACITRACIN ZINC 15 GM TUBE TOPICAL OINTMENT TP SCH (11:41)
[2022-04-28] MEDS: SENNOSIDES 8.6MG TABLET (FP) PO SCH (22:39)
[2022-04-28] MEDS: MELATONIN 1 MG TABLET PO SCH (22:40)
[2022-04-28] MEDS: POLYETHYLENE GLYCOL (HEALTHYLAX) 3350 17 GM PACKET PO SCH (22:40)
[2022-04-28] MEDS: ATORVASTATIN CA 20 MG TABLET (FP) PO SCH (22:40)
[2022-04-29 05:30] VITALS: RESP 18; TEMP 97.8
[2022-04-29] MEDS: POLYETHYLENE GLYCOL (HEALTHYLAX) 3350 17 GM PACKET PO SCH (06:40)
[2022-04-29 10:28] VITALS: BP 120/59; PULSE 83
[2022-04-29] MEDS: MULTIVITAMINS (DAILY MVI) TABLET (FP) PO SCH (10:37)
[2022-04-29] MEDS: SERTRALINE HCL 50 MG TABLET (FP) PO SCH (10:37)
[2022-04-29] MEDS: METOPROLOL TARTRATE 25 MG TABLET (FP) PO SCH (10:37)
[2022-04-29] MEDS: POTASSIUM CHLORIDE ORAL LIQUID 20 MEQ/15 ML PO SCH (10:37)
[2022-04-29] MEDS: ASCORBIC ACID 500 MG TABLET (FP) PO SCH (10:37)
[2022-04-29] MEDS: CHOLECALCIFEROL (VIT D3) 1,000 UNIT (25 MCG) TABLET PO SCH (10:37)
[2022-04-29] MEDS: LACTOBACILLUS ACIDOPHILUS 1 TABLET PO SCH (10:37)
[2022-04-29] MEDS: AMINO ACIDS/PROTEIN HYDROLYS 30 ML LIQUID.PKT PO SCH (10:38)
[2022-04-29] MEDS: BACITRACIN ZINC 15 GM TUBE TOPICAL OINTMENT TP SCH (10:38)
[2022-04-29] MEDS: NIFEdipine E.R. 30 MG TABLET PO SCH (10:40)
[2022-04-29] MEDS: CALCIUM 250MG/VIT-D 125 UNITS 1 COMBO TABLET PO SCH (10:50)
== END 2022-04-29 12:13 | DRG 388 ==
LOC: JER 13:11 → JERBED 18:01 → J4W 04-22 15:15 → J7W 04-25 15:51
PROVIDERS: ADMIT Internal Medicine; ATTEND Internal Medicine
DX: K56.41 Fecal impaction (principal); J96.01 Acute respiratory failure with hypoxia; I47.1 Supraventricular tachycardia; I24.8 Other forms of acute ischemic heart disease; I10 Essential (primary) hypertension; G20 Parkinson's disease; F02.80 Dementia in other diseases classified elsewhere, unspecified severity, without behavioral disturbance, psychotic disturbance, mood disturbance, and anxiety; L89.152 Pressure ulcer of sacral region, stage 2; E11.9 Type 2 diabetes mellitus without complications; F41.9 Anxiety disorder, unspecified; Z79.84 Long term (current) use of oral hypoglycemic drugs
CPT/HCPCS: 0241U-QW; 36415; 70450-TC; 71045-TC-FY; 71260-TC; 74018-TC-FY; 74019-TC-FY; 74177-TC; 80048; 80053; 81003; 82803; 82962; 83605; 83735; 84100; 84484; 85025; 85027; 85610; 85730; 87040; 87086; 93005; 93010; 93306-TC; 99291; C9803-CS; Q9967; U0003; U0005